=== PATIENT | female | born 1935 | race Caucasian/White ===

== ENCOUNTER 2017-03-14 07:48 | Day surgery (SDC) | payer MEDICARE, BC ==
[~2017-03-14 07:48] MED LIST: ceFAZolin 2 GM in Premix Bag 1 BAG IV ONE
[2017-03-14] MEDS ORDERED: Lactated Ringers 1,000 ML IV SCH (08:00)
[2017-03-14] MEDS ORDERED: Bupivacaine 0.25%/EPINEPHrine 1:200,000 10 ML SDV INJECT ONE (08:00)
[2017-03-14] MEDS ORDERED: Propofol 200 MG/20 ML SDV ONE ×2 (08:08→09:53)
[2017-03-14] MEDS ORDERED: Ondansetron 4 MG/2 ML SDV ONE (08:08)
[2017-03-14] MEDS ORDERED: fentaNYL 100 MCG/2 ML SDV ONE (08:08)
[2017-03-14] MEDS ORDERED: Midazolam 1 MG/ML 2 ML SDV ONE (08:09)
--- NOTE | 2017-03-14 08:13 | PCM.PREANE ---
Preanesthetic Assessment - Anesthesia/Transfusion/Family Hx Anesthesia History: Prior Anesthesia Reaction (takes long for her to wake up, has required overnight admission) Family History of Anesthesia Reaction: Yes (mother with cardiac arrest under anesthesia, sucessfully recuscitated with CPR) Transfusion History: No Prior Transfusion(s) - Review of Systems General: No Symptoms Pulmonary: No Symptoms Cardiovascular: No Symptoms Gastrointestinal: No Symptoms Neurological: No Symptoms Other: Reports: None - Physical Assessment NPO Status Date: 03/13/17 O2 Sat by Pulse Oximetry: 97 Respiratory Rate: 16 Vital Signs: Last Vital Signs Temp 37.5 C 03/14/17 08:10 Pulse 97 03/14/17 08:10 Resp 16 03/14/17 08:10 BP 215/92 H 03/14/17 08:10 Pulse Ox 97 03/14/17 08:10 Height: 1.65 m Weight: 71.668 kg ASA Class: 1 Mental Status: Alert & Oriented x3 Airway Class: Mallampati = 2 Dentition: Reports: Dentures ROM/Head Extension: Full Lungs: Clear to Auscultation, Normal Respiratory Effort Cardiovascular: Regular Rate, Regular Rhythm - Allergies Allergies/Adverse Reactions: Allergies Allergy/AdvReac Type Severity Reaction Status Date / Time adhesive tape Allergy Redness Verified 03/09/17 13:17 - Acknowledgements Anesthesia Type Planned: General Anesthesia Pt an Appropriate Candidate for the Planned Anesthesia: Yes Alternatives and Risks of Anesthesia Discussed w Pt/Guardian: Yes Pt/Guardian Understands and Agrees with Anesthesia Plan: Yes PreAnesthesia Questionnaire HEENT History: Reports: Cataract, Macular Degeneration Other HEENT History: wears glasses, has upper and lower dentures, has eye injections every 6-8 weeks for macular degeneration 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: Musculoskeletal History: Reports: Neck Pain, Chronic Oncologic (Cancer) History: Reports: Basal Cell Carcinoma, Breast Dermatologic History: Reports: Other (See Below) Other Dermatologic History: many "skin spots" frozen off - Past Surgical History Head Surgeries/Procedures: Reports: None HEENT Surgical History: Reports: Adenoidectomy, Cataract Surgery, Tonsillectomy GI Surgical History: Reports: Colonoscopy Female Surgical History: Reports: Breast Biopsy, Other (See Below) Other Female Surgeries/Procedures: breast lumpectomy Oncologic Surgical History: Reports: Lumpectomy - SUBSTANCE USE Smoking Status *Q: Former Smoker Tobacco Use Within Last Twelve Months: No Days Per Week of Alcohol Use: 7 Number of Drinks Per Day: 1 Total Drinks Per Week: 7 Recreational Drug Use History: No - HOME MEDS Home Medications: Home Meds Aflibercept [Eylea] 1 drop EYEBOTH ASDIRECTED 03/09/17 [History] - CURRENT (IN HOUSE) MEDS Current Meds: Current Medications Lactated Ringer's (Ringers, Lactated) 1,000 mls @ 125 mls/hr IV ASDIRECTED MEREDITH Tramadol HCl (Ultram) 50 mg PO Q4H PRN PRN Reason: Pain Discontinued Medications Bupivacaine HCl/Epinephrine Bitart (Marcaine 0.25%/Epinephrine 1:200,000) 30 ml INJECT ONETIME ONE Stop: 03/14/17 08:01 Cefazolin Sodium/Dextrose 2 gm (/ Premix) 50 mls @ 100 mls/hr IV ONETIME ONE Stop: 03/13/17 12:47
[2017-03-14] MEDS ORDERED: Bupivacaine 25%/EPINEPHrine/PF 30 ML ONE (08:41)
[2017-03-14] MEDS ORDERED: traMADol 50 MG Tab PO PRN (09:00)
[2017-03-14] MEDS ORDERED: diphenhydrAMINE 50 MG/ML SDV ONE (09:28)
--- NOTE | 2017-03-14 11:41 | PCM48HPAN ---
Post Anesthesia Note - EVALUATION WITHIN 48HRS OF ANESTHETIC Vital Signs in Normal Range: Yes Patient Participated in Evaluation: Yes Respiratory Function Stable: Yes Airway Patent: Yes Cardiovascular Function Stable: Yes Hydration Status Stable: Yes Pain Control Satisfactory: Yes Nausea and Vomiting Control Satisfactory: Yes Mental Status Recovered: Yes
--- NOTE | 2017-03-14 11:41 | PCM.POSTAN ---
POST ANESTHESIA ASSESSMENT - MENTAL STATUS Mental Status: Alert, Oriented - RESPIRATORY Respiratory Status: Respiratory Rate WNL, Airway Patent, O2 Saturation Stable - CARDIOVASCULAR CV Status: Pulse Rate WNL, Blood Pressure Stable - GASTROINTESTINAL GI Status: No Symptoms - POST OP HYDRATION Hydration Status: Adequate & Stable
--- NOTE | 2017-03-14 21:19 | PCM.OPNOTE ---
- General Post-Op/Procedure Note Date of Surgery/Procedure: 03/14/17 Operative Procedure(s): Excision of left cheek basal cell 1.5cm2 and right chin basal cell 2cm with local flap closure of the left cheek total area defect + closure 6cm2 and primary closure of the right chin with an intermediate 2cm repair. Excision of left forehead/scalp cyst Pre Op Diagnosis: basal cell face x 2 and forehead cyst Post-Op Diagnosis: Same Anesthesia Technique: Local, MAC Primary Surgeon: Kiesha Mancuso [employer] Chair: Komal Landry Complications: None Condition: Good Free Text/Narrative:: Intake & Output 03/14/17 03/14/17 03/14/17 07:59 15:59 23:59 Intake Total 1100 Balance 1100
--- NOTE | 2017-03-19 13:38 | OR ---
SURGEON: KAVON BARRETO MD DATE OF PROCEDURE: 03/14/2017 PREOPERATIVE DIAGNOSIS: Basal cell carcinoma of the face x2 and forehead cyst. POSTOPERATIVE DIAGNOSIS: Basal cell carcinoma of the face x2 and forehead cyst. PROCEDURES: 1. Excision of left cheek basal cell 1.5 cm with local flap closure, total area defect plus closure 6 cm2. 2. Excision of right chin basal cell 2 cm with primary closure in an intermediate repair for 2 cm. 3. Excision of left forehead/scalp cyst 1.5 cm2. PLEATER: Komal Landry. ANESTHESIA: Local MAC. INDICATIONS: Ms. Bedoya is an 81-year-old female with a basal cell on her face and a scalp cyst. Risks and benefits of excision of these and possible flap closure of the cheek were discussed with her and she was in agreement to proceed. Risks were including, but not limited to, bleeding, infection, damage to underlying or overlying structures, possible need for future interventions, possible scarring. PROCEDURE IN DETAIL: After informed consent was obtained and placed on the chart, the patient was brought to the operating theater and laid in supine position. After adequate local MAC anesthesia was obtained, the area was prepped and draped and a time- out was completed to confirm side and site. Attention was then paid to marking of the two facial lesions and they were excised and sent for pathology with marking stitches at 12 o'clock. Once adequately excised, the area was meticulously hemostased. Attention was paid to closure of the right chin as it could be closed primarily. Once this was completed using deep Monocryl stitches and a running subcuticular, several simple Prolene sutures were used to reapproximate the corner better. This was then dressed with a Steri-Strip. Frozen sections came back negative on both and thus, the left cheek lesion was closed using a V-Y advancement flap for a total area of 6 cm defect plus flap area. Once adequately closed, these were dressed with bacitracin and attention was paid to the left forehead scalp cyst. A 15 blade was used to dissect through the skin and circumferentially around the mass itself. Once adequately removed, the area was hemostased, irrigated, and closed using deep Monocryl stitches and a chromic stitch for the skin. The patient tolerated this well. All counts and needles were correct at the end of the case. FOLLOWUP INSTRUCTIONS: The patient will see us in 7 to 10 days for suture removal, sooner if any problems, questions, or concerns. FREDO / DANIELLE /[id number]
== END 2017-03-14 12:30 | disposition home or self-care (01) ==
LOC: MW.SDS 07:48
PROVIDERS: ATTEND Plastic Surgery
DX: C44.319 Basal cell carcinoma of skin of other parts of face (principal); L72.0 Epidermal cyst; Z91.09 Other allergy status, other than to drugs and biological substances; Z98.890 Other specified postprocedural states; Z87.891 Personal history of nicotine dependence
CPT/HCPCS: 11422; 11642; 12051; 14040; 88304; 88305; J1200; J2250; J2405; J3010; J7120; 00300; J2704

== ENCOUNTER 2023-03-24 12:17 | Emergency (ER) | payer MEDICARE, BC ==
[2023-03-24] MEDS ORDERED: Sodium Chloride 0.9% 10 ML Syringe FLUSH PRN (12:28)
[2023-03-24] MEDS ORDERED: Sodium Chloride 0.9% 2.5 ML Syringe FLUSH PRN (12:28)
[2023-03-24 12:35] LABS: BASOPHILS ABSOLUTE AUTO 0.05 K/uL (0.00-0.20); BASOPHILS PERCENT AUTO 0.7 % (0.0-1.0); EOSINOPHILS ABSOLUTE AUTO 0.21 K/uL (0.00-0.45); HEMATOCRIT 36.5 % (37.0-47.0); HEMOGLOBIN 12.8 g/dL (12.0-16.0); IMMATURE GRAN ABSOLUTE AUTO 0.01 K/uL (0.00-0.05); IMMATURE GRAN PERCENT AUTO 0.1 % (0.0-0.4); LYMPHOCYTES ABSOLUTE AUTO 1.45 K/uL (1.00-4.80); LYMPHOCYTES PERCENT AUTO 20.5 % (24.0-44.0); MEAN CORPUSCULAR HEMOGLOBIN 32.2 pg (28.0-32.0); MEAN CORPUSCULAR HGB CONC 35.1 g/dL (32.0-36.0); MEAN CORPUSCULAR VOLUME 91.9 fL (83.0-99.0); MONOCYTES ABSOLUTE AUTO 0.55 K/uL (0.00-0.80); MONOCYTES PERCENT AUTO 7.8 % (0.0-8.0); NEUTROPHILS ABSOLUTE AUTO 4.79 K/uL (1.80-7.70); NEUTROPHILS PERCENT AUTO 67.9 % (41.0-71.0); PLATELET COUNT,PLT 242 K/uL (150-400); RED BLOOD CELL COUNT 3.97 M/uL (4.10-5.30); WHITE BLOOD CELL COUNT,WBC 7.06 K/uL (3.9-11.3)
[2023-03-24 12:48] LABS: INR 1.02 (0.86-1.11); PTT,PARTIAL THROMBOPLSTIN TIME 24.8 SEC (23.9-30.7)
[2023-03-24 13:04] LABS: A/G RATIO 1.1 (0.9-1.6); ALBUMIN 3.7 g/dL (3.4-5.0); BILIRUBIN TOTAL 0.3 mg/dL (0.2-1.0); CALCIUM 9.1 mg/dL (8.5-10.1); CARBON DIOXIDE,CO2 28.7 mmol/L (21.0-32.0); CREATININE 0.9 mg/dL (0.6-1.0); EST CRCL DRUG DOSING (CG) 38.75 mL/min; MAGNESIUM 1.9 mg/dL (1.8-2.4); POTASSIUM,K 3.9 mmol/L (3.5-5.1); PROTEIN TOTAL,TP 7.2 g/dL (6.4-8.2)
[2023-03-24] MEDS ORDERED: Iopamidol 755 MG/ML 500 ML Multipack Bottle IVPUSH STA (15:43)
[2023-03-24] MEDS ORDERED: Aspirin 81 MG Tab.Chew PO ONE (16:10)
[2023-03-24] MEDS ORDERED: Ondansetron 4 MG/2 ML SDV IVPUSH ONE (16:50)
[2023-03-24] MEDS: Clopidogrel 75 MG Tab PO ONE ×2 (16:51→16:54)
[2023-03-24] MEDS ORDERED: Clopidogrel 75 MG Tab PO ONE (16:52)
== END 2023-03-24 17:18 ==
LOC: MW.ED 12:17
DX: I63.9 Cerebral infarction, unspecified (principal); Z91.048 Other nonmedicinal substance allergy status
CPT/HCPCS: 36415; 70450; 70496; 70498; 71045; 80053; 82947; 83735; 84484; 85025; 85610; 85730; 93005; 96374; 99285; A9270; J2405; J3490; Q9967; 93010; 99291

== ENCOUNTER 2025-03-14 09:09 | Emergency (ER) | payer MEDICARE, BC ==
[2025-03-14] MEDS: Bacitracin Oint 1 GM U/D Packet TOP ONE (09:33)
== END 2025-03-14 11:55 | disposition home or self-care (01) ==
LOC: MW.ED 09:09
DX: S61.412A Laceration without foreign body of left hand, initial encounter (principal); S41.112A Laceration without foreign body of left upper arm, initial encounter; Z79.899 Other long term (current) drug therapy; Z91.048 Other nonmedicinal substance allergy status; W06.XXXA Fall from bed, initial encounter
CPT/HCPCS: 70450; 70450-26; 73060-26-LT; 73060-LT; 73130-26-LT; 73130-LT; 99283